=== PATIENT | female | born 1950 | race Two or more races ===

== ENCOUNTER 2023-05-27 18:34 | Emergency (ER) | payer OTHER ==
[~2023-05-27] VITALS: Ht 162.6 cm; Wt 64.4 kg
== END 2023-05-27 20:30 | disposition home or self-care (01) ==
LOC: ER 18:34
DX: N39.0 Urinary tract infection, site not specified (principal); E11.9 Type 2 diabetes mellitus without complications; I10 Essential (primary) hypertension

== ENCOUNTER 2024-07-20 14:26 | Emergency (ER) | payer OTHER ==
[~2024-07-20] VITALS: Ht 162.6 cm; Wt 65.8 kg
[2024-07-20] MEDS ORDERED: SYNTHROID125 MCG (15:19)
[2024-07-20] MEDS ORDERED: GEMFIBROZIL600 MG (15:19)
[2024-07-20] MEDS ORDERED: PREVACID30 MG (15:20)
[2024-07-20] MEDS ORDERED: METFORMIN HCL500 M3 (15:20)
[2024-07-20] MEDS ORDERED: ZESTRIL20 MG (15:20)
[2024-07-20] MEDS ORDERED: KETOROLAC TROMETHAMINE 30 MG VIAL IM STA (16:47)
== END 2024-07-20 19:50 | disposition home or self-care (01) ==
LOC: ER 14:27
DX: S92.501A Displaced unspecified fracture of right lesser toe(s), initial encounter for closed fracture (principal); Y33.XXXA Other specified events, undetermined intent, initial encounter; Y93.9 Activity, unspecified; Y92.9 Unspecified place or not applicable; Y99.9 Unspecified external cause status